=== PATIENT | female | born 1965 | race Caucasian/White ===

== ENCOUNTER 2019-01-18 08:53 | Emergency (ER) | payer SELFPAY ==
[2019-01-18] MEDS ORDERED: Fentanyl 100 MCG/2 ML VIAL ONE (09:20)
[2019-01-18] MEDS ORDERED: Sodium Chloride 0.9% 1,000 ML ONE (09:20)
[2019-01-18 09:40] LABS: #Basophils 0.1 thou/uL (0.0-0.2); #Eosinphils 0.2 thou/uL (0.0-0.7); #Lymphocytes 3.3 thou/uL (1.20-3.40); #Monocytes 0.4 thou/uL (0.11-0.59); #Neutrophils 4.2 thou/uL (1.40-6.50); %Basophils 1.2 % (0.0-1.0); %Eosinophils 2.3 % (0.0-10.0); %Lymphocytes 40.5 % (21.0-51.0); %Monocytes 4.5 % (0.0-10.0); %Neutrophils 51.4 % (42.0-75.0); Hemoglobin 15.8 g/dL (12.0-16.0); Mean Corpuscular HGB CONC 32.9 g/dL (32.0-36.0); Mean Corpuscular Volume 88.2 fL (78.0-98.0); Platelet Count 239 thou/uL (130-400); RBC Distribution Width 13.5 % (11.5-14.5); Red Blood Cell (RBC) Count 5.46 mill/uL (4.20-5.40); White Blood Cell (WBC) Count 8.2 thou/uL (4.8-10.8)
[2019-01-18 10:01] LABS: ALT (SGPT) 27 U/L (8-55); AST (SGOT) 20 U/L (5-34); Albumin 4.5 g/dL (3.5-5.0); Alkaline Phosphatase 77 U/L (40-150); Anion Gap 16 mmol/L (10-20); BUN (Urea Nitrogen) 6 mg/dL (9.8-20.1); Bilirubin, Total 0.5 mg/dL (0.2-1.2); Calc. Creatinine Clearance 0 mL/min (70-130); Calcium 9.3 mg/dL (7.8-10.44); Carbon Dioxide 23 mmol/L (22-29); Chloride 106 mmol/L (98-107); Estimated GFR-MDRD 64; Globulin 3.1 g/dL (2.4-3.5); Glucose 84 mg/dL (70-105); Lipase 30 U/L (8-78); Potassium 4.1 mmol/L (3.5-5.1); Protein, Total 7.6 g/dL (6.0-8.3); Sodium 141 mmol/L (136-145)
[2019-01-18 10:09] LABS: Bilirubin Negative (Negative); Blood, Urine Negative (Negative); Clarity Clear (Clear); Glucose, Urine (Dipstick) Negative (Negative); Leukocyte Negative (Negative); Nitrite Negative (Negative); Protein, Urine (Dipstick) Negative (Neg-Trace); Urobilinogen 0.2 mg/dL (Less than 2)
[2019-01-18] MEDS ORDERED: Iopamidol 370 76% 100 ML VIAL ONE (11:15)
--- NOTE | 2019-01-18 11:40 | CT ---
EXAM: Abdomen and pelvic CT scan with contrast: HISTORY: Right side diffuse abdominal pain for 2 weeks with nausea and vomiting COMPARISON: None FINDINGS: The visualized lung bases are clear. Liver: Unremarkable. Gallbladder:Unremarkable. Pancreas:Unremarkable Spleen:Unremarkable. Adrenal glands:Unremarkable. Kidneys:No renal calculus or acute obstruction. No solid or cystic renal mass. No evidence for large or small bowel obstruction. 4.9 cm diameter periumbilical mesenteric fat-containing hernia No CT evidence for acute appendicitis. The urinary bladder is unremarkable. Unremarkable uterus and adnexa. No abscess, adenopathy, or abnormal fluid collection within the abdomen or pelvis. IMPRESSION: Periumbilical fat-containing hernia.
== END 2019-01-18 12:20 | disposition home or self-care (01) ==
LOC: MADERS 08:53
DX: K42.9 Umbilical hernia without obstruction or gangrene (principal); F17.210 Nicotine dependence, cigarettes, uncomplicated; Z71.6 Tobacco abuse counseling
CPT/HCPCS: 74177; 80053; 81003; 83605; 83690; 83880; 84484; 85025; 93005; 94760; 96361; 96374; 99406; J3010; J7050; Q9967

== ENCOUNTER 2020-08-28 09:10 | Outpatient (CLI) | payer OTHER, SELFPAY | END 2020-08-28 09:11 | disposition home or self-care (01) | LOC: MADRAD 09:10 | PROVIDERS: ATTEND Family Medicine | DX: M54.5 Low back pain (principal); M47.816 Spondylosis without myelopathy or radiculopathy, lumbar region; M47.814 Spondylosis without myelopathy or radiculopathy, thoracic region; I70.0 Atherosclerosis of aorta; I70.8 Atherosclerosis of other arteries | CPT/HCPCS: 72100 ==